=== PATIENT | female | born 1970 | race Two or more races ===

== ENCOUNTER 2018-07-29 08:07 | Day surgery (SDC) | payer OTHER | END 2018-07-29 17:10 | disposition home or self-care (01) | LOC: CIR.AMB 08:07 | DX: N84.0 Polyp of corpus uteri (principal) ==

== ENCOUNTER 2019-01-26 10:57 | Outpatient (CLI) | payer OTHER | END 2019-01-26 11:08 | disposition home or self-care (01) | LOC: SONOGRAMA 10:57 | DX: D17.79 Benign lipomatous neoplasm of other sites (principal) ==

== ENCOUNTER 2019-03-22 07:59 | Outpatient (CLI) | payer OTHER | END 2019-03-22 08:01 | disposition home or self-care (01) | LOC: SONOGRAMA 07:59 | DX: E04.2 Nontoxic multinodular goiter (principal) ==